=== PATIENT | female | born 1955 | race Caucasian/White ===

== ENCOUNTER 2017-09-16 15:03 | Emergency (ER) | payer OTHER ==
[~2017-09-16] VITALS: Ht 160 cm; Wt 119.0 kg
[~2017-09-16 15:03] MED LIST: ASPI81 PO; ENAL2.5 PO; LEVO100T4 PO; PANT40IN3 PO; PROP20 PO; PROP20TA3 PO; SYMB160A INH; TICA90 PO; ULTR50TA PO
[2017-09-16 15:10] VITALS: BP 149/87; PULSE 71; RESP 16; TEMP 98.2; O2SAT 97
[2017-09-16] MEDS ORDERED: SYMB160A INH (15:26)
[2017-09-16] MEDS ORDERED: LEVO100T5 PO (15:26)
[2017-09-16] MEDS ORDERED: PRED10 PO (15:26)
[2017-09-16] MEDS ORDERED: PANT20TA2 PO (15:26)
[2017-09-16] MEDS ORDERED: BRIL90TA PO (15:26)
[2017-09-16] MEDS ORDERED: CEFD300C PO (15:26)
[2017-09-16] MEDS ORDERED: PROP20TA3 PO (15:26)
--- NOTE | 2017-09-16 16:12 | PD ---
HPI Chief Complaint: Laceration/Skin Injury Time Seen by Provider: 15:30 Travel History International Travel<30 days: No Contact w/Intl Traveler<30days: No Traveled to known affect area: No History of Present Illness HPI 8-year-old female here with laceration to the left palm caused by kitchen knife. Injury occurred at work at approximately 10:30 AM. She denies paresthesia or weakness of the extremity. She has full range of motion and normal sensation of all digits. Pain at the site of the laceration. Symptom severity is moderate. Tetanus immunization is unknown. PFSH Past Medical History Arthritis: Yes Blood Disorders: No Cancer: No Cardiovascular Problems: Yes Chemotherapy: No Cirrhosis: Yes COPD: Yes Diabetes: No Diminished Hearing: No Endocrine: Yes Gastrointestinal Disorders: Yes (ESOPHAGEAL VARICES) Genitourinary: No Hepatitis: No Hiatal Hernia: Yes Hypertension: No Immune Disorder: No Implanted Vascular Access Dvce: Yes Musculoskeletal: Yes (DEGENERATIVE JOINT DISEASE) Neurologic: No Psychiatric: No Reproductive: No Respiratory: Yes (BRONCHITIS 3-4 WKS AGO, copd) Immunizations Current: Yes Radiation Therapy: No Thyroid Disease: Yes Tetanus Vaccination: Unknown Influenza Vaccination: No PNEUMOCCOCAL Vaccine (Year): 2 Menopausal: Yes Past Surgical History Abdominal Surgery: Yes (GALL BLADDER REMOVAL) AICD: No Appendectomy: Yes Arteriovenous Shunt: No Cardiac Surgery: No Section: Yes Cholecystectomy: Yes Ear Surgery: No Endocrine Surgery: No Eye Surgery: No Genitourinary Surgery: No Gynecologic Surgery: Yes (2 C SECTIONS) Insulin Pump: No Joint Replacement: Yes (ANIVAL HIPS) Oral Surgery: Yes (TONSILECTOMY) Pacemaker: No Thoracic Surgery: No Tonsillectomy: Yes Other Surgery: Yes Social History Alcohol Use: No Tobacco Use: No (QUIT 2011) Substance Use: No Allergies-Medications (Allergen,Severity, Reaction): Coded Allergies: erythromycin base (Unverified Allergy, Intermediate, 09/16/17) pt does not know reaction Reported Meds & Prescriptions Reported Meds & Active Scripts Active Reported Cefdinir 300 Mg Cap 300 Mg PO BID Prednisone 10 Mg Tab 10 Mg PO DAILY Brilinta (Ticagrelor) 90 Mg Tab 180 Mg PO ONCE Pantoprazole (Pantoprazole Sodium) 20 Mg Tab 20 Mg PO DAILY Propranolol (Propranolol HCl) 20 Mg Tab 20 Mg PO Q12HR Levothyroxine (Levothyroxine Sodium) 100 Mcg Tab 100 Mcg PO DAILY Symbicort Inh (Budesonide/Formoterol Fumarate) 160-4.5 Mcg/Act Aero 1 Puff INH Q12HR Review of Systems Except as stated in HPI: all other systems reviewed are Neg General / Constitutional: No: Fever Eyes: No: Visual changes HENT: No: Headaches Cardiovascular: No: Chest Pain or Discomfort Respiratory: No: Shortness of Breath Gastrointestinal: No: Abdominal Pain Genitourinary: No: Dysuria Physical Exam Narrative GENERAL: Alert female well-appearing. SKIN: Warm and dry. 2 cm laceration left palm HEAD: Normocephalic. EYES: No injection or drainage. NECK: Supple, trachea midline. No JVD or lymphadenopathy. MUSCULOSKELETAL: No cyanosis, or edema. Left hand: 2 cm laceration left palm. No Tendon or vascular injury identified. Patient is able to flex and extend all digits against resistance. Normal sensation. Brisk cap refill. Data Data Last Documented VS Vital Signs Date Time Temp Pulse Resp B/P (MAP) Pulse Ox O2 Delivery O2 Flow Rate FiO2 09/16/17 15:10 98.2 71 16 149/87 (107) 97 MDM Medical Decision Making Medical Screen Exam Complete: Yes Emergency Medical Condition: Yes Differential Diagnosis Laceration, tendon laceration, ligament injury Narrative Course 8-year-old female with a to send a laceration to her left palm. The extremity is neurovascularly intact. I do not suspect tendon or vascular injury. The wound was sutured closed. Patient tolerated procedure well. Procedures Procedure Narrative LACERATION LOCATION: Left hand LENGTH: 2 cm NUMBER OF STITCHES/TERELL: 5 REPAIR: The area of the laceration was prepped with Betadine and sterilely draped. The laceration was infiltrated with 1% lidocaine. The wound was copiously irrigated and explored without evidence of foreign body, tendon injury or neurovascular injury. The wound was closed using 3-0 Ethilon. This was a SINGLE layer repair. A sterile dressing was applied. The patient was advised to keep the dressing clean and dry. Patient tolerated the procedure well. Diagnosis Primary Impression: Hand laceration Qualified Codes: S61.412A - Laceration without foreign body of left hand, initial encounter Referrals: Primary Care Physician Additional Instructions: Sutures need to be removed in 7-10 days. Do not submerge the wound in water. Tylenol or ibuprofen for pain. Return if he developed signs of infection which would include increased pain, redness, drainage from the site Disposition: 01 DISCHARGE HOME Condition: Stable Benita Lindsey Sep 16, 2017 16:12
[2017-09-16] MEDS ORDERED: TETANUS/DIPHTHERIA TOXOID ADULT 0.5 ML VIAL IM ONE (16:15)
== END 2017-09-16 16:25 | disposition home or self-care (01) ==
LOC: PHEFT 15:03
DX: S61.412A Laceration without foreign body of left hand, initial encounter (principal); W26.0XXA Contact with knife, initial encounter; Y99.0 Civilian activity done for income or pay; J44.9 Chronic obstructive pulmonary disease, unspecified; K74.60 Unspecified cirrhosis of liver; Z87.891 Personal history of nicotine dependence; Z23 Encounter for immunization
CPT/HCPCS: 12001; 90471; 90714